=== PATIENT | female | born 1955 | race Caucasian/White ===

== ENCOUNTER 2021-12-30 13:38 | Inpatient (IN) | payer MEDICAID, MEDICARE ==
[~2021-12-30] VITALS: Ht 157.5 cm; Wt 90.2 kg
[2021-12-30] MEDS ORDERED: MAGN400T33 PO (13:47)
[2021-12-30] MEDS ORDERED: ELIQ5TAB PO (13:47)
[2021-12-30] MEDS ORDERED: SPIR-10 PO (13:47)
[2021-12-30] MEDS ORDERED: METO1TAB7 PO (13:47)
[2021-12-30] MEDS ORDERED: VENL-37 PO (13:47)
[2021-12-30] MEDS ORDERED: ATOR40TA75 PO (13:47)
[2021-12-30] MEDS ORDERED: NS 500 ML IV ONE (14:35)
[2021-12-30 14:56] LABS: BASO # 0.1 10^3/uL (0.0-0.2); BASO % 0.8 % (0.0-1.0); EOS % 0.2 % (0.0-3.0); HEMATOCRIT 42.1 % (36.0-47.0); HEMOGLOBIN 13.8 g/dl (12.0-15.5); LYMPH # 1.5 10^3/uL (1.5-5.0); LYMPH % 24.1 % (24.0-44.0); MEAN CORPUSCULAR HEMOGLOBIN 32.4 pg (27.0-33.0); MEAN CORPUSCULAR HGB CONC 32.8 g/dl (32.0-36.5); MEAN CORPUSCULAR VOLUME 98.8 fl (80.0-96.0); MONO % 15.6 % (2.0-8.0); NEUTROPHILS # 3.7 10^3/uL (1.5-8.5); NEUTROPHILS % 59.1 % (36.0-66.0); PLATELET COUNT, AUTOMATED 143 10^3/uL (150-450); RED BLOOD COUNT 4.26 10^6/uL (4.00-5.40); WHITE BLOOD COUNT 6.3 10^3/uL (4.0-10.0)
[2021-12-30 15:08] LABS: INR 1.5; PROTHROMBIN TIME 18.5 SECONDS (12.7-14.5)
[2021-12-30 15:09] LABS: PARTIAL THROMBOPLASTIN TIME 34.5 SECONDS (25.9-37.0)
[2021-12-30 15:34] LABS: CK-MB VALUE MASS 27.5 NG/ML (<3.6); MB/CK RELATIVE INDEX 2.24 (< OR =4)
[2021-12-30 15:41] LABS: CALCIUM LEVEL 8.9 MG/DL (8.8-10.2); CREATININE FOR GFR 1.25 MG/DL (0.55-1.30); FREE T4 0.76 NG/DL (0.76-1.46); GLOMERULAR FILTRATION RATE 45.9 (>45); MAGNESIUM LEVEL 2.2 MG/DL (1.8-2.4); POTASSIUM SERUM 4.8 MEQ/L (3.5-5.1); THYROID STIMULATING HORMONE 1.26 uIU/ML (0.358-3.740)
[2021-12-30 16:46] LABS: CK-MB VALUE MASS 24.4 NG/ML (<3.6); MB/CK RELATIVE INDEX 1.92 (< OR =4)
[2021-12-30] MEDS ORDERED: CLON-412 PO (16:59)
[2021-12-30] MEDS ORDERED: ENTR1TAB PO (16:59)
[2021-12-30 17:48] LABS: RSV AMPLIFICATION NEGATIVE (NEGATIVE)
[2021-12-30] MEDS ORDERED: FURO20TA2 PO (18:22)
[2021-12-30 18:24] LABS: D-DIMER QUANT 350.89 ng/ml (<500)
[2021-12-30] MEDS ORDERED: HOME MED LIST COMPLETE! XX SCH (18:25)
[2021-12-30 18:40] LABS: ALBUMIN 4.1 GM/DL (3.2-5.2); BILIRUBIN,DIRECT 0.2 MG/DL (0.0-0.2); BILIRUBIN,TOTAL 0.5 MG/DL (0.2-1.0); C REACTIVE PROTEIN QUANTITATIV 0.34 MG/DL (0.00-0.30); TOTAL PROTEIN 7.3 GM/DL (6.4-8.2)
[2021-12-30 18:43] LABS: ERYTHROCYTE SEDIMENTATION RATE 17 mm/hr (0-30)
[2021-12-30] MEDS: NS 1,000 ML IV SCH ×2 (18:55→21:45)
[2021-12-30] MEDS ORDERED: REMDESIVIR 200 MG in NS 250 ML IV ONE (20:00)
[2021-12-30] MEDS: ATORVASTATIN 20 MG TAB PO SCH (21:46)
[2021-12-30] MEDS: APIXABAN 5 MG TAB (ELIQUIS) PO SCH (21:46)
[2021-12-30] MEDS: METOPROLOL SUCC (TopROL XL) 50MG **XL** TAB PO SCH (21:47)
[2021-12-30] MEDS ORDERED: SODIUM CHLORIDE 0.9% INJ 10 ML SYR IV ONE (22:00)
[2021-12-30 22:02] VITALS: BP 111/73
[2021-12-30 22:07] VITALS: O2SAT 99
[2021-12-30] MEDS: VENLAFAXINE 37.5 MG TAB PO SCH (23:07)
[2021-12-31] VITALS (8 sets, daily range): BP systolic 100–122; BP diastolic 54–80; O2SAT 95–97
[2021-12-31 00:30] LABS: APPEARANCE, URINE HAZY (CLEAR); BACTERIA, URINE AUTO NEGATIVE (NEGATIVE); BILIRUBIN, URINE AUTO NEGATIVE (NEGATIVE); BLOOD, URINE BLOOD 1+ (NEGATIVE); COLOR, URINE YELLOW (YELLOW); GLUCOSE, URINE (UA) AUTO NEGATIVE (NEGATIVE); KETONE, URINE AUTO NEGATIVE (NEGATIVE); LEUKOCYTE ESTERASE, URINE AUTO NEGATIVE (NEGATIVE); MUCUS, URINE SMALL (NEGATIVE); NITRITE, URINE AUTO NEGATIVE (NEGATIVE); PROTEIN, URINE AUTO NEGATIVE (NEGATIVE); RBC, URINE AUTO 2 /HPF (0-3); SPECIFIC GRAVITY URINE AUTO 1.025 (1.002-1.035); SQUAMOUS EPITHELIAL CELL UR AU 3 /HPF (0-6); UROBILINOGEN, URINE AUTO 0.2 mg/dL (0.0-2.0); WBC, URINE AUTO 4 /HPF (0-3)
[2021-12-31 06:43] LABS: BASO % 0.8 % (0.0-1.0); EOS % 0.5 % (0.0-3.0); HEMATOCRIT 37.2 % (36.0-47.0); HEMOGLOBIN 11.8 g/dl (12.0-15.5); LYMPH % 51.4 % (24.0-44.0); MEAN CORPUSCULAR HEMOGLOBIN 32.2 pg (27.0-33.0); MEAN CORPUSCULAR HGB CONC 31.7 g/dl (32.0-36.5); MEAN CORPUSCULAR VOLUME 101.4 fl (80.0-96.0); MONO # 0.5 10^3/uL (0.0-0.8); MONO % 13.6 % (2.0-8.0); NEUTROPHILS # 1.3 10^3/uL (1.5-8.5); NEUTROPHILS % 33.4 % (36.0-66.0); PLATELET COUNT, AUTOMATED 111 10^3/uL (150-450); RED BLOOD COUNT 3.67 10^6/uL (4.00-5.40); WHITE BLOOD COUNT 3.9 10^3/uL (4.0-10.0)
[2021-12-31 07:17] LABS: ALT/SGPT 62 U/L (12-78); BILIRUBIN,DIRECT 0.2 MG/DL (0.0-0.2); BILIRUBIN,TOTAL 0.4 MG/DL (0.2-1.0); BLOOD UREA NITROGEN 19 MG/DL (7-18); CALCIUM LEVEL 8.2 MG/DL (8.8-10.2); CARBON DIOXIDE LEVEL 23 MEQ/L (21-32); CHLORIDE LEVEL 112 MEQ/L (98-107); CREATININE FOR GFR 0.99 MG/DL (0.55-1.30); GLOMERULAR FILTRATION RATE > 60.0 (>45); GLUCOSE, FASTING 93 MG/DL (70-100); MAGNESIUM LEVEL 1.9 MG/DL (1.8-2.4); POTASSIUM SERUM 3.9 MEQ/L (3.5-5.1); SODIUM LEVEL 142 MEQ/L (136-145); TOTAL PROTEIN 5.9 GM/DL (6.4-8.2)
[2021-12-31] MEDS: APIXABAN 5 MG TAB (ELIQUIS) PO SCH ×2 (08:12→20:37)
[2021-12-31] MEDS: VENLAFAXINE 37.5 MG TAB PO SCH ×2 (08:12→20:38)
[2021-12-31] MEDS: ASPIRIN 81MG ENTERIC TABLET PO SCH (08:12)
[2021-12-31] MEDS: MAGNESIUM OXIDE 400MG TAB (MAG-OX) PO SCH (08:12)
[2021-12-31] MEDS: METOPROLOL SUCC (TopROL XL) 50MG **XL** TAB PO SCH ×2 (09:00→20:40)
[2021-12-31] MEDS: NS 1,000 ML IV SCH (10:25)
[2021-12-31] MEDS: ATORVASTATIN 20 MG TAB PO SCH (20:38)
[2021-12-31] MEDS: REMDESIVIR 100 MG in NS 250 ML IV SCH (20:41)
[2021-12-31] MEDS: SODIUM CHLORIDE 0.9% INJ 10 ML SYR IV SCH (21:03)
[2022-01-01] VITALS: O2SAT 96
[2022-01-01] MEDS: NS 1,000 ML IV SCH ×5 (00:02→20:03)
[2022-01-01] MEDS ORDERED: RAMELTEON 8 MG TAB (ROZEREM) PO PRN (02:55)
[2022-01-01 04:00] VITALS: O2SAT 95
[2022-01-01 05:34] VITALS: BP 104/70
[2022-01-01 06:16] LABS: BASO % 0.3 % (0.0-1.0); EOS # 0.1 10^3/uL (0.0-0.5); EOS % 2.2 % (0.0-3.0); HEMATOCRIT 35.7 % (36.0-47.0); HEMOGLOBIN 11.5 g/dl (12.0-15.5); LYMPH # 2.1 10^3/uL (1.5-5.0); LYMPH % 58.9 % (24.0-44.0); MEAN CORPUSCULAR HEMOGLOBIN 32.5 pg (27.0-33.0); MEAN CORPUSCULAR HGB CONC 32.2 g/dl (32.0-36.5); MEAN CORPUSCULAR VOLUME 100.8 fl (80.0-96.0); MONO # 0.4 10^3/uL (0.0-0.8); PLATELET COUNT, AUTOMATED 101 10^3/uL (150-450); RED BLOOD COUNT 3.54 10^6/uL (4.00-5.40); WHITE BLOOD COUNT 3.6 10^3/uL (4.0-10.0)
[2022-01-01 06:40] LABS: ALBUMIN 2.9 GM/DL (3.2-5.2); ALT/SGPT 56 U/L (12-78); BILIRUBIN,DIRECT < 0.1 MG/DL (0.0-0.2); BILIRUBIN,TOTAL 0.2 MG/DL (0.2-1.0); BLOOD UREA NITROGEN 16 MG/DL (7-18); CALCIUM LEVEL 8.3 MG/DL (8.8-10.2); CARBON DIOXIDE LEVEL 25 MEQ/L (21-32); CHLORIDE LEVEL 115 MEQ/L (98-107); CREATININE FOR GFR 0.87 MG/DL (0.55-1.30); FERRITIN 95 NG/ML (8-252); GLOMERULAR FILTRATION RATE > 60.0 (>45); GLUCOSE, FASTING 91 MG/DL (70-100); INR 1.25; LDH LACTATE DEHYDROGENASE 277 U/L (84-246); NT-PRO BNP 670 PG/ML (<125); POTASSIUM SERUM 4.2 MEQ/L (3.5-5.1); PROTHROMBIN TIME 16.1 SECONDS (12.7-14.5); SODIUM LEVEL 144 MEQ/L (136-145); TOTAL PROTEIN 5.9 GM/DL (6.4-8.2)
[2022-01-01 06:41] LABS: PARTIAL THROMBOPLASTIN TIME 36.2 SECONDS (25.9-37.0)
[2022-01-01 07:10] LABS: NEUTROPHILS # 0.9 10^3/uL (1.5-8.5)
[2022-01-01] MEDS: MAGNESIUM OXIDE 400MG TAB (MAG-OX) PO SCH (08:12)
[2022-01-01] MEDS: ASPIRIN 81MG ENTERIC TABLET PO SCH (08:12)
[2022-01-01] MEDS: APIXABAN 5 MG TAB (ELIQUIS) PO SCH ×2 (08:12→20:02)
[2022-01-01] MEDS: VENLAFAXINE 37.5 MG TAB PO SCH ×2 (08:12→20:02)
[2022-01-01] MEDS: METOPROLOL SUCC (TopROL XL) 50MG **XL** TAB PO SCH ×2 (08:21→20:03)
[2022-01-01 14:00] VITALS: BP 102/68
[2022-01-01 19:19] VITALS: BP 117/75
[2022-01-01] MEDS: ATORVASTATIN 20 MG TAB PO SCH (20:02)
[2022-01-01] MEDS: SODIUM CHLORIDE 0.9% INJ 10 ML SYR IV SCH (20:03)
[2022-01-01] MEDS: REMDESIVIR 100 MG in NS 250 ML IV SCH (20:03)
[2022-01-02 04:23] VITALS: BP 107/97
[2022-01-02 07:21] LABS: HEMATOCRIT 34.9 % (36.0-47.0); HEMOGLOBIN 11.4 g/dl (12.0-15.5); MEAN CORPUSCULAR HEMOGLOBIN 32.9 pg (27.0-33.0); MEAN CORPUSCULAR HGB CONC 32.7 g/dl (32.0-36.5); MEAN CORPUSCULAR VOLUME 100.6 fl (80.0-96.0); RED BLOOD COUNT 3.47 10^6/uL (4.00-5.40); WHITE BLOOD COUNT 3.5 10^3/uL (4.0-10.0)
[2022-01-02 07:51] LABS: BLOOD UREA NITROGEN 14 MG/DL (7-18); CALCIUM LEVEL 7.9 MG/DL (8.8-10.2); CARBON DIOXIDE LEVEL 27 MEQ/L (21-32); CHLORIDE LEVEL 115 MEQ/L (98-107); GLOMERULAR FILTRATION RATE > 60.0 (>45); GLUCOSE, FASTING 97 MG/DL (70-100); MAGNESIUM LEVEL 1.9 MG/DL (1.8-2.4); POTASSIUM SERUM 4.4 MEQ/L (3.5-5.1); SODIUM LEVEL 144 MEQ/L (136-145)
[2022-01-02 08:00] VITALS: O2SAT 97
[2022-01-02 08:05] LABS: PLATELET COUNT, AUTOMATED 95 10^3/uL (150-450)
[2022-01-02 08:08] LABS: ATYPICAL LYMPH 4 % (0-5); EOSINOPHILS 2 % (0-3); LYMPHOCYTES 43 % (16-44); MONOCYTES 10 % (0-5); NEUTROPHILS 41 % (28-66); PLATELET ESTIMATE DECREASED (NORMAL)
[2022-01-02] MEDS: MAGNESIUM OXIDE 400MG TAB (MAG-OX) PO SCH (08:12)
[2022-01-02] MEDS: ASPIRIN 81MG ENTERIC TABLET PO SCH (08:12)
[2022-01-02] MEDS: VENLAFAXINE 37.5 MG TAB PO SCH (08:12)
[2022-01-02] MEDS: APIXABAN 5 MG TAB (ELIQUIS) PO SCH (08:12)
[2022-01-02 08:13] VITALS: BP 136/84
[2022-01-02] MEDS: METOPROLOL SUCC (TopROL XL) 50MG **XL** TAB PO SCH (08:13)
[2022-01-02] MEDS: NS 1,000 ML IV SCH ×2 (10:50→14:54)
[2022-01-02 12:00] VITALS: O2SAT 96
== END 2022-01-02 17:13 | disposition home or self-care (01) | DRG 557 ==
LOC: M ED 13:38 → M ED INP 17:34 → ENRESERV 20:07 → M 4MAIN 22:00
PROVIDERS: ADMIT Internal Medicine; ATTEND Internal Medicine
PROC: XW033E5 Introduction of Remdesivir Anti-infective into Peripheral Vein, Percutaneous Approach, New Technology Group 5 (ICD-10-PCS; principal; 2021-12-30)
DX: M62.82 Rhabdomyolysis (principal); U07.1 COVID-19; I42.9 Cardiomyopathy, unspecified; I48.19 Other persistent atrial fibrillation; I50.32 Chronic diastolic (congestive) heart failure; R55 Syncope and collapse; Z79.01 Long term (current) use of anticoagulants; Z79.899 Other long term (current) drug therapy; Z90.49 Acquired absence of other specified parts of digestive tract; F41.9 Anxiety disorder, unspecified; F32.A Depression, unspecified; E86.0 Dehydration

== ENCOUNTER 2025-03-06 16:40 | Inpatient (IN) | payer MEDICAID, MEDICARE, OTHER ==
[2025-03-06] VITALS (8 sets, daily range): BP systolic 95–105; BP diastolic 52–72; TEMP 99.5–100.4; O2SAT 94–98
[~2025-03-06] VITALS: Ht 157.5 cm; Wt 81.5 kg
[~2025-03-06 16:40] MED LIST: ATOR40TA75 PO; CLON-412 PO; ELIQ5TAB PO; ENTR1TAB PO; FURO20TA2 PO; MAGN400T33 PO; METO1TAB7 PO; SPIR-10 PO; VENL-37 PO
[2025-03-06] MEDS: NS 500 ML IV ONE (17:15)
[2025-03-06] MEDS: ONDANSETRON 4MG 2ML VIAL IV ONE (17:15)
[2025-03-06 17:41] LABS: VENOUS BASE EXCESS 0.0 (-2.0-2.0); VENOUS HCO3 25.1 MMOL/L (23.0-27.0); VENOUS O2 SATURATION 54.4 % (60.0-80.0); VENOUS PARTIAL PRESSURE CO2 42.8 mmHg (38.0-50.0); VENOUS PARTIAL PRESSURE O2 34.6 mmHg (30.0-50.0); VENOUS PH 7.386 UNITS (7.330-7.430); VENOUS STANDARD HCO3 23.8 MMOL/L; VENOUS TOTAL CO2 26.4 MMOL/L (24.0-28.0)
[2025-03-06 17:43] LABS: BASO # 0.1 10^3/uL (0.0-0.2); BASO % 0.4 % (0.0-1.0); EOS # 0.1 10^3/uL (0.0-0.5); EOS % 0.6 % (0.0-3.0); LYMPH # 1.9 10^3/uL (1.5-5.0); LYMPH % 15.8 % (24.0-44.0); MONO # 1.5 10^3/uL (0.0-0.8); MONO % 13.1 % (2.0-8.0); NEUTROPHILS # 8.2 10^3/uL (1.5-8.5); NEUTROPHILS % 69.2 % (36.0-66.0); PLATELET COUNT, AUTOMATED 366 10^3/uL (150-450)
[2025-03-06] MEDS ORDERED: ISOVUE-370 76% 100 ML VIAL As Ordered ONE (17:44)
[2025-03-06 17:56] LABS: INR 2.07
[2025-03-06 18:12] LABS: CK-MB VALUE MASS 2.3 NG/ML (<3.6)
[2025-03-06 18:14] LABS: ALT/SGPT 26.0 U/L (7.0-40); AST/SGOT 53.0 U/L (<34); CALCIUM LEVEL 8.2 MG/DL (8.3-10.6); CARBON DIOXIDE LEVEL 26.0 MMOL/L (20-31); CHLORIDE LEVEL 97.0 MMOL/L (98-107); CREATININE FOR GFR 0.83 MG/DL (0.55-1.30); GLOMERULAR FILTRATION RATE 77.2 (>45); POTASSIUM SERUM 4.0 MMOL/L (3.5-5.1); SODIUM LEVEL 136.0 MMOL/L (136-145)
[2025-03-06 18:16] LABS: FREE T4 1.74 NG/DL (0.89-1.76)
[2025-03-06 18:19] LABS: CPK CREATINE PHOSPHOKINASE 34.0 U/L (34-145); MB/CK RELATIVE INDEX 6.76 (< OR =4)
[2025-03-06 18:21] LABS: KETONE, URINE AUTO RFX NEGATIVE (NEGATIVE); LEUKOCYTE ESTERASE UR AUTO RFX NEGATIVE (NEGATIVE); MUCUS, URINE RFX SMALL (NEGATIVE); NITRITE, URINE AUTO RFX NEGATIVE (NEGATIVE); RBC, URINE AUTO RFX 3 /HPF (0-3); SQUAM EPITHELIAL CELL UR AURFX 1 /HPF (0-6); WBC, URINE AUTO RFX 2 /HPF (0-3)
[2025-03-06 19:07] LABS: CK-MB VALUE MASS 1.6 NG/ML (<3.6)
[2025-03-06 19:09] LABS: CPK CREATINE PHOSPHOKINASE < 15 U/L (34-145); MB/CK RELATIVE INDEX 0.00 (< OR =4)
[2025-03-06] MEDS: BENZONATATE 100 MG CAPSULE PO ONE (20:10)
[2025-03-06] MEDS ORDERED: METOPROLOL TART 25 MG TABLET PO SCH (21:00)
[2025-03-06] MEDS ORDERED: AMIO200T37 PO (21:18)
[2025-03-06] MEDS ORDERED: FERR324T2 PO (21:18)
[2025-03-06] MEDS ORDERED: PANT40TA29 PO (21:18)
[2025-03-06] MEDS ORDERED: VITA100093 PO (21:18)
[2025-03-06] MEDS ORDERED: MAGN64TASA PO (21:18)
[2025-03-06] MEDS ORDERED: LISI2.5T9 PO (21:18)
[2025-03-06] MEDS ORDERED: ASPI81CH48 PO (21:18)
[2025-03-06] MEDS ORDERED: HOME MED LIST COMPLETE! XX SCH (21:20)
[2025-03-06] MEDS: LR 1,000 ML IV SCH (21:42)
[2025-03-06] MEDS: PIPERACILLIN/TAZOBACTAM SOD 4.5 GM in DEXTROSE 5% (D5W) ADV/MINI-BAG 50 ML IV SCH (21:43)
[2025-03-06] MEDS: VENLAFAXINE 37.5 MG TAB PO SCH (23:07)
[2025-03-06 23:39] LABS: LDH LACTATE DEHYDROGENASE 400.0 U/L (120-246)
[2025-03-06 23:52] LABS: IRON (FE) 13 UG/DL (50-170); PERCENT SATURATION 7.7 % (13.2-45.0)
[2025-03-06 23:55] LABS: VITAMIN B12 LEVEL 414 PG/ML (211-911)
[2025-03-07] VITALS (11 sets, daily range): BP systolic 92–127; BP diastolic 55–75; TEMP 97.2–98.1; O2SAT 94–100
[2025-03-07] MEDS: AMIODARONE 200 MG TAB PO SCH (03:29)
[2025-03-07 06:03] LABS: PLATELET COUNT, AUTOMATED 267 10^3/uL (150-450)
[2025-03-07 06:35] LABS: CALCIUM LEVEL 7.6 MG/DL (8.3-10.6); CARBON DIOXIDE LEVEL 26 MMOL/L (20-31); CHLORIDE LEVEL 99 MMOL/L (98-107); CREATININE FOR GFR 0.73 MG/DL (0.55-1.30); GLOMERULAR FILTRATION RATE > 90.0 (>45); POTASSIUM SERUM 3.5 MMOL/L (3.5-5.1); SODIUM LEVEL 136 MMOL/L (136-145)
[2025-03-07] MEDS: VITAMIN D 1,000 INTERNATIONAL UNITS TABLET PO SCH (08:37)
[2025-03-07] MEDS: LISINOPRIL 2.5 MG TAB PO SCH (08:37)
[2025-03-07] MEDS: ASPIRIN 81 MG CHEWABLE TABLET PO SCH (08:38)
[2025-03-07] MEDS: guaiFENesin ER TABLET 600 MG TAB PO SCH (08:38)
[2025-03-07] MEDS: ATORVASTATIN 20 MG TAB PO SCH (08:38)
[2025-03-07] MEDS: PANTOPRAZOLE 40MG TAB PO SCH (08:38)
[2025-03-07] MEDS ORDERED: AMIODARONE 200 MG TAB PO SCH (09:00)
[2025-03-07] MEDS: ACETAMINOPHEN 325 MG TAB PO ONE (10:36)
[2025-03-07] MEDS: FUROSEMIDE 20 MG TAB PO SCH (11:25)
[2025-03-07] MEDS: FERROUS SULFATE 325 MG TAB PO SCH (11:41)
[2025-03-07] MEDS: FOLIC ACID 1 MG TAB PO SCH (11:42)
[2025-03-07] MEDS: MAGNESIUM GLUCONATE 500 MG TAB PO SCH (21:36)
[2025-03-08 00:03] VITALS: BP 117/75; TEMP 98.1; O2SAT 97
[2025-03-08 04:13] VITALS: BP 118/72; TEMP 98.2; O2SAT 93
[2025-03-08 05:53] LABS: PLATELET COUNT, AUTOMATED 274 10^3/uL (150-450)
[2025-03-08 06:21] LABS: CALCIUM LEVEL 8.1 MG/DL (8.3-10.6); CARBON DIOXIDE LEVEL 26.0 MMOL/L (20-31); CHLORIDE LEVEL 100.0 MMOL/L (98-107); CREATININE FOR GFR 0.77 MG/DL (0.55-1.30); GLOMERULAR FILTRATION RATE 84.5 (>45); POTASSIUM SERUM 3.9 MMOL/L (3.5-5.1); SODIUM LEVEL 139.0 MMOL/L (136-145)
[2025-03-08 07:46] VITALS: BP 116/72; TEMP 98.1; O2SAT 95
[2025-03-08 09:13] VITALS: BP 117/74
[2025-03-08] MEDS ORDERED: CEFD300C PO (11:55)
[2025-03-08] MEDS ORDERED: DOXY-442 PO (11:55)
[2025-03-08] MEDS ORDERED: [UNRECOGNIZED DRUG - CODE] PO (11:55)
[2025-03-08 12:00] VITALS: BP 104/59; TEMP 97.9; O2SAT 96
[2025-03-08] MEDS: guaiFENesin DM *SUGAR FREE* 5ML**DIABETIC TUSSIN DM PO ONE (12:51)
[2025-03-08] MEDS ORDERED: FOLI1TAB11 PO (13:46)
[2025-03-08] MEDS ORDERED: guaiFENesin DM *SUGAR FREE* 5ML**DIABETIC TUSSIN DM PO PRN (18:00)
== END 2025-03-08 14:36 | disposition home or self-care (01) | DRG 872 ==
LOC: M ED 16:40 → M ED INP 22:12 → M MSPAV 03-07 01:12
PROVIDERS: ADMIT Student in an Organized Health Care Education/Training Program; ATTEND Student in an Organized Health Care Education/Training Program
PROC: 30233N1 Transfusion of Nonautologous Red Blood Cells into Peripheral Vein, Percutaneous Approach (ICD-10-PCS; 2025-03-06)
PROC: B246ZZZ Ultrasonography of Right and Left Heart (ICD-10-PCS; principal; 2025-03-07)
DX: A41.9 Sepsis, unspecified organism (principal); C85.96 Non-Hodgkin lymphoma, unspecified, intrapelvic lymph nodes; I50.22 Chronic systolic (congestive) heart failure; J98.11 Atelectasis; I51.81 Takotsubo syndrome; I48.91 Unspecified atrial fibrillation; Z95.810 Presence of automatic (implantable) cardiac defibrillator; Z90.49 Acquired absence of other specified parts of digestive tract; R63.4 Abnormal weight loss; D63.0 Anemia in neoplastic disease; E78.5 Hyperlipidemia, unspecified; K21.9 Gastro-esophageal reflux disease without esophagitis; F39 Unspecified mood [affective] disorder; Z66 Do not resuscitate; I25.10 Atherosclerotic heart disease of native coronary artery without angina pectoris; M19.90 Unspecified osteoarthritis, unspecified site; R74.02 Elevation of levels of lactic acid dehydrogenase [LDH]; B97.89 Other viral agents as the cause of diseases classified elsewhere; B97.10 Unspecified enterovirus as the cause of diseases classified elsewhere; J06.9 Acute upper respiratory infection, unspecified; Z79.01 Long term (current) use of anticoagulants; Z79.899 Other long term (current) drug therapy; Z79.82 Long term (current) use of aspirin; Z91.040 Latex allergy status